=== PATIENT | female | born 1995 | race Caucasian/White ===

== ENCOUNTER 2016-10-15 20:17 | Emergency (ER) | payer OTHER ==
--- NOTE | 2016-10-15 21:44 | ED ORDER SUMMARY ---
..... Patient: HARSHAL CHARLES OrderSheet [facility] VisitID: [id number] [place] [address] 21y, F Registration Date/Time: 10/15/2016 ORDER SHEET Weight: 61.2 kg (stated) Allergies: None GENERAL ORDERS: CBC w Diff Urgent (20:34 10/15/2016 HBivens A.R.N.P.) (Ack 20:38 AMcQuoid ER Tech1) (Collected 20:47 RMarsden R.N.) (21:11 RMarsden R.N.) CMP Urgent (20:34 10/15/2016 HBivens A.R.N.P.) (Ack 20:38 AMcQuoid ER Tech1) (Collected 20:47 RMarsden R.N.) (21:11 RMarsden R.N.) UA-Culture if indicated Urgent (20:34 10/15/2016 HBivens A.R.N.P.) (Ack 20:38 AMcQuoid ER Tech1) (20:39 ALawrence ER Tech1) Amylase Urgent (20:34 10/15/2016 HBivens A.R.N.P.) (Ack 20:38 AMcQuoid ER Tech1) (Collected 20:47 RMarsden R.N.) (21:11 RMarsden R.N.) Lipase Urgent (20:34 10/15/2016 HBivens A.R.N.P.) (Ack 20:38 AMcQuoid ER Tech1) (Collected 20:47 RMarsden R.N.) (21:11 RMarsden R.N.) Urine Urgent (20:34 10/15/2016 HBivens A.R.N.P.) (Ack 20:38 AMcQuoid ER Tech1) (20:39 ALawrence ER Tech1) Urine Drug Screen Urgent (20:34 10/15/2016 HBivens A.R.N.P.) (Ack 20:38 AMcQuoid ER Tech1) (20:39 ALawrence ER Tech1) MEDICATION ORDERS: IV FLUIDS: IV NS : initial bolus 1000 mL (1000 mL/hr), then none - (NOW) (20:34 10/15/2016 HBivens A.R.N.P.) (20:47 RMarsden R.N.) Zofran IV 4 mg (NOW) (20:34 10/15/2016 HBivens A.R.N.P.) (21:11 RMarsden R.N.) IV Saline Lock (20:34 10/15/2016 HBivens A.R.N.P.) (20:46 RMarsden R.N.) ORDER SHEET NOTES: [Electronically signed by Mesha CampoRJuanitaN.P. (22:38 10/15/2016)] [Electronically signed by Jackie Nieves R.N. (04:55 10/16/2016)] [Electronically locked/signed by Jackie Nieves R.N. (04:55 10/16/2016)]
--- NOTE | 2016-10-15 21:44 | ED ORDER SUMMARY ---
..... Patient: HARSHAL CHARLES OrderSheet [facility] VisitID: [id number] [place] [address] 21y, F Registration Date/Time: 10/15/2016 ORDER SHEET Weight: 61.2 kg (stated) Allergies: None GENERAL ORDERS: CBC w Diff Urgent (20:34 10/15/2016 HBivens A.R.N.P.) (Ack 20:38 AMcQuoid ER Tech1) (Collected 20:47 RMarsden R.N.) (21:11 RMarsden R.N.) CMP Urgent (20:34 10/15/2016 HBivens A.R.N.P.) (Ack 20:38 AMcQuoid ER Tech1) (Collected 20:47 RMarsden R.N.) (21:11 RMarsden R.N.) UA-Culture if indicated Urgent (20:34 10/15/2016 HBivens A.R.N.P.) (Ack 20:38 AMcQuoid ER Tech1) (20:39 ALawrence ER Tech1) Amylase Urgent (20:34 10/15/2016 HBivens A.R.N.P.) (Ack 20:38 AMcQuoid ER Tech1) (Collected 20:47 RMarsden R.N.) (21:11 RMarsden R.N.) Lipase Urgent (20:34 10/15/2016 HBivens A.R.N.P.) (Ack 20:38 AMcQuoid ER Tech1) (Collected 20:47 RMarsden R.N.) (21:11 RMarsden R.N.) Urine Urgent (20:34 10/15/2016 HBivens A.R.N.P.) (Ack 20:38 AMcQuoid ER Tech1) (20:39 ALawrence ER Tech1) Urine Drug Screen Urgent (20:34 10/15/2016 HBivens A.R.N.P.) (Ack 20:38 AMcQuoid ER Tech1) (20:39 ALawrence ER Tech1) MEDICATION ORDERS: IV FLUIDS: IV NS : initial bolus 1000 mL (1000 mL/hr), then none - (NOW) (20:34 10/15/2016 HBivens A.R.N.P.) (20:47 RMarsden R.N.) Zofran IV 4 mg (NOW) (20:34 10/15/2016 HBivens A.R.N.P.) (21:11 RMarsden R.N.) IV Saline Lock (20:34 10/15/2016 HBivens A.R.N.P.) (20:46 RMarsden R.N.) ORDER SHEET NOTES: [Electronically signed by Mesha CampoRJuanitaN.P. (22:38 10/15/2016)] [Electronically signed by Jackie Nieves R.N. (04:55 10/16/2016)] [Electronically locked/signed by Jackie Nieves R.N. (04:55 10/16/2016)]
--- NOTE | 2016-10-15 21:44 | ED NURSING NOTES ---
Clinical Report - Nurses [facility] [address] [place] [address] 10/15/2016 20:19 Patient: HARSHAL CHARLES TRIAGE Triage time 20:22. Acuity: LEVEL 3. Chief Complaint: NAUSEA and VOMITING. 20:34 10/15/16. Alert. No acute distress. SEPSIS SCREEN: Sepsis Screen. Negative (no infection suspected/documented). HUBERT COMA SCORE: Hubert Coma Scale: 15- eyes open spontaneously (4); best verbal response- oriented x 4 (5); best motor response- obeys commands (6). --20:35 Jackie Nieves R.N. 20:25 10/15/16. BP: 118/76 taken on the left arm, while sitting. HR: 108. RR: 15. O2 saturation: 100%. Temp: 99 F. Pain level now: 0/10. --20:35 Jackie Nieves R.N. Weight: 61.2 kg stated. Height/Length: 67 inches Per Patient. BMI: 21.2. --20:30 Jackie Nieves R.N. Medications None. --20:28 Jackie Nieves R.N. Allergies None. --20:28 Jackie Nieves R.N. History Arrived by private vehicle. Historian: patient. Accompanied by family. Primary physician ([facility]). This started last night. ( Patient states she had four drinks last night and has been vomiting "every half hour since about 2am."). She has had abdominal pain. Last oral intake by patient was 2 hours ago (saltine crackers). Treatment UNION LABORER: None. PAST MEDICAL HX: Immunizations: up-to-date. Last normal menstrual period was 2 weeks ago. Denies current . SOCIAL HX: Never smoker. Occasional alcohol use. No drug use. FALL RISK ASSESSMENT: Fall risk assessment completed. No fall risk identified. NUTRITIONAL RISK ASSESSMENT: The nutritional risk assessment revealed no deficiencies. FUNCTIONAL ASSESSMENT: Functional assessment: no impairments noted. LEARNING NEEDS ASSESSMENT: The learning needs assessment revealed no barriers. SKIN INTEGRITY ASSESSMENT: Skin integrity risk assessment completed. No skin integrity risk identified. --20:35 Jackie Nieves R.N. PROBLEMS: no known problems. ADDITIONAL SURGERIES: no known surgeries. Interventions ID band on patient. To treatment room. --20:35 Jackie Nieves R.N. NURSING PROGRESS NOTES 20:36 10/15/2016 Site #1 started via IV in the right antecubital space with an 20g angiocath; one attempt. Blood drawn: rainbow set. Labeled in the presence of the patient and sent to the lab. Saline lock flushed with 5 mL saline. --20:46 Jackie Nieves R.N. 20:42 10/15/2016 Started bag #1 1000 mL IV Fluids IV NS (Saline); bolus of 1000 mL wide open via site #1. Allergies verified and confirmed 5 rights. IV patency established. IV site checked: no pain, redness, or swelling. IV flushed thoroughly pre- and post-medication administration. Completed per protocol. --20:47 Jackie Nieves R.N. 20:47 10/15/2016 Zofran (Ondansetron HCl) IVP 4 mg given over 2 minute(s) via site #1. Allergies verified and confirmed 5 rights. IV patency established. IV site checked: no pain, redness, or swelling. IV flushed thoroughly pre- and post-medication administration. IVP given by RN. --21:11 Jackie Nieves R.N. DISPOSITION / DISCHARGE 22:07 10/15/2016 Site #1 removed upon discharge. Bandaid applied. --22:12 Sathya Khan REsha No learning barriers present. Discharge instructions provided and reviewed with the patient. Reviewed medication(s) side effects, precautions, dosing and course information. Prescription(s) given to the patient. Patient verbalized understanding. Written instructions provided in Lao. The patient was discharged by the nurse practitioner. She was discharged home and accompanied by parent. She left the Emergency Department ambulatory and via private vehicle. Parent driving. ( pt dc only by this RN, pt given rx and f/u , ambulatory to lobby with steady gait). --22:13 Sathya Khan R.N. 22:11 10/15/16. BP: 105/58. HR: 94. RR: 17. O2 saturation: 99%. Temp: deferred. Pain level now: 0/10. --22:13 Page-Sathya Hernandez R.N. Locked/Released at 10/16/2016 4:55 by Jackie Nieves R.N.
--- NOTE | 2016-10-15 21:44 | ED NURSING NOTES ---
Clinical Report - Nurses [facility] [address] [place] [address] 10/15/2016 20:19 Patient: HARSHAL CHARLES TRIAGE Triage time 20:22. Acuity: LEVEL 3. Chief Complaint: NAUSEA and VOMITING. 20:34 10/15/16. Alert. No acute distress. SEPSIS SCREEN: Sepsis Screen. Negative (no infection suspected/documented). HUBERT COMA SCORE: Hubert Coma Scale: 15- eyes open spontaneously (4); best verbal response- oriented x 4 (5); best motor response- obeys commands (6). --20:35 Jackie Nieves R.N. 20:25 10/15/16. BP: 118/76 taken on the left arm, while sitting. HR: 108. RR: 15. O2 saturation: 100%. Temp: 99 F. Pain level now: 0/10. --20:35 Jackie Nieves R.N. Weight: 61.2 kg stated. Height/Length: 67 inches Per Patient. BMI: 21.2. --20:30 Jackie Nieves R.N. Medications None. --20:28 Jackie Nieves R.N. Allergies None. --20:28 Jackie Nieves R.N. History Arrived by private vehicle. Historian: patient. Accompanied by family. Primary physician ([facility]). This started last night. ( Patient states she had four drinks last night and has been vomiting "every half hour since about 2am."). She has had abdominal pain. Last oral intake by patient was 2 hours ago (saltine crackers). Treatment FOOD ASSEMBLER KITCHEN: None. PAST MEDICAL HX: Immunizations: up-to-date. Last normal menstrual period was 2 weeks ago. Denies current . SOCIAL HX: Never smoker. Occasional alcohol use. No drug use. FALL RISK ASSESSMENT: Fall risk assessment completed. No fall risk identified. NUTRITIONAL RISK ASSESSMENT: The nutritional risk assessment revealed no deficiencies. FUNCTIONAL ASSESSMENT: Functional assessment: no impairments noted. LEARNING NEEDS ASSESSMENT: The learning needs assessment revealed no barriers. SKIN INTEGRITY ASSESSMENT: Skin integrity risk assessment completed. No skin integrity risk identified. --20:35 Jackie Nieves R.N. PROBLEMS: no known problems. ADDITIONAL SURGERIES: no known surgeries. Interventions ID band on patient. To treatment room. --20:35 Jackie Nieves R.N. NURSING PROGRESS NOTES 20:36 10/15/2016 Site #1 started via IV in the right antecubital space with an 20g angiocath; one attempt. Blood drawn: rainbow set. Labeled in the presence of the patient and sent to the lab. Saline lock flushed with 5 mL saline. --20:46 Jackie Nieves R.N. 20:42 10/15/2016 Started bag #1 1000 mL IV Fluids IV NS (Saline); bolus of 1000 mL wide open via site #1. Allergies verified and confirmed 5 rights. IV patency established. IV site checked: no pain, redness, or swelling. IV flushed thoroughly pre- and post-medication administration. Completed per protocol. --20:47 Jackie Nieves R.N. 20:47 10/15/2016 Zofran (Ondansetron HCl) IVP 4 mg given over 2 minute(s) via site #1. Allergies verified and confirmed 5 rights. IV patency established. IV site checked: no pain, redness, or swelling. IV flushed thoroughly pre- and post-medication administration. IVP given by RN. --21:11 Jackie Nieves R.N. DISPOSITION / DISCHARGE 22:07 10/15/2016 Site #1 removed upon discharge. Bandaid applied. --22:12 Sathya Khan REsha No learning barriers present. Discharge instructions provided and reviewed with the patient. Reviewed medication(s) side effects, precautions, dosing and course information. Prescription(s) given to the patient. Patient verbalized understanding. Written instructions provided in Belarusian. The patient was discharged by the nurse practitioner. She was discharged home and accompanied by parent. She left the Emergency Department ambulatory and via private vehicle. Parent driving. ( pt dc only by this RN, pt given rx and f/u , ambulatory to lobby with steady gait). --22:13 Sathya Khan R.N. 22:11 10/15/16. BP: 105/58. HR: 94. RR: 17. O2 saturation: 99%. Temp: deferred. Pain level now: 0/10. --22:13 Page-Sathya Hernandez R.N. Locked/Released at 10/16/2016 4:55 by Jackie Nieves R.N.
--- NOTE | 2016-10-15 21:44 | ED CLINICAL REPORT ---
Clinical Report - Physicians/Mid Levels [facility] [address] [place] [address] 10/15/2016 20:19 Patient: HARSHAL CHARLES Time Seen: 20:23; initial patient contact, initial documentation, patient care assumed. Arrived- By private vehicle. Historian- patient and mother. HISTORY OF PRESENT ILLNESS Chief Complaint: VOMITING. This started today and is still present. It was abrupt in onset and has been constant. No recent travel. She has had nausea and vomiting. No diarrhea, black stools, bloody stools, constipation or flank pain. No history of possible bad food exposure, known contact with a sick individual or change in routine. She has had mild abdominal pain (feels sore). Has not recently been camping or on antibiotics. The illness is described as severe. (partied last night for graduation, had x4 drinks, but alcohol doesn't do her well, feel hungover). Similar symptoms previously: Milder. Recent medical care: Not recently seen/assessed. REVIEW OF SYSTEMS No fever, difficulty with urination, dark urine, chest pain or difficulty breathing. Denies current . All systems otherwise negative, except as recorded above. PAST HISTORY Negative. SOCIAL HISTORY Never smoker. Occasional alcohol use. No drug use. No recent travel. Is a local resident. FAMILY HISTORY Negative. ADDITIONAL NOTES The nursing notes have been reviewed with agreement regarding the chief complaint, HPI, ROS, PMH and patient medications and allergies. PHYSICAL EXAM Vital Signs: 10/15/2016 20:25 BP: 118/76. HR: 108. RR: 15. O2 saturation: 100%. Temp: 99 F. Pain level now: 0/10. Have been reviewed as abnormal and appear to be correct. Blood pressure normal. Tachycardic. Respiratory rate normal. Temperature normal. Oxygen saturation normal. Appearance: Alert. Oriented X3. No acute distress. Eyes: Pupils equal, round and reactive to light. Eyes normal inspection. ENT: Nose normal. Pharynx normal. Neck: Normal inspection. Neck supple. CVS: Heart rate / rhythm abnormal. Tachycardia (ventricular rate = 120). Heart sounds normal. Pulses normal. Respiratory: No respiratory distress. Breath sounds normal. Abdomen: Soft and nontender. Bowel sounds normal. No organomegaly. No mass. Back: Normal inspection. Skin: Skin warm and dry. Normal skin color. No rash. Normal skin turgor. Extremities: Extremities exhibit normal ROM. No lower extremity edema. Neuro: Oriented X 3. No motor deficit. No sensory deficit. LABS, X-RAYS, AND EKG Laboratory Tests: UA-Culture if indicated: (FANY: 10/15/2016 20:31) ( [facility] 10/15/2016 21:12) Final results Test Result Flag Units (Reference) URINE COLOR YELLOW URINE APPEARANCE CLEAR URINE GLUCOSE NEGATIVE (NEGATIVE) URINE BILIRUBIN NEGATIVE (NEGATIVE) URINE KETONE 2+ (NEGATIVE) URINE SPECIFIC GRAVITY 1.025 (1.010-1.030) URINE PH 7.0 (5.0-8.0) URINE PROTEIN 1+ (NEGATIVE) URINE UROBILINOGEN 0.2 EU/dL (0.2-1.0) URINE NITRITE NEGATIVE (NEGATIVE) URINE BLOOD TRACE-INTACT (NEGATIVE) URINE LEUK ESTERASE NEGATIVE (NEGATIVE) URINE RBC RARE rbc/hpf (0-1) URINE WBC 1-3 wbc/hpf (0-1) URINE EPITHELIAL CELLS 1-3 EPI/hpf (0-5) URINE BACTERIA MODERATE (2+ TO 3+) (NONE SEEN) URINE COMMENT CULTURE INDICATED 1+ MUCUSURINE CULTURES ARE SET-UP BASED ON THE FOLLOWING CRITERIA:POSITIVE NITRITEPOSITIVE LEUKOCYTE ESTERASEGREATER THAN 10 WHITE BLOOD CELLSMODERATE (2+) OR GREATER BACTERIA Urine: (FANY: 10/15/2016 20:31) ( [facility] 10/15/2016 20:51) Final results Test Result Flag Units (Reference) URINE NEGATIVE CBC w Diff: (FANY: 10/15/2016 20:42) ( [facility] 10/15/2016 20:56) Final results Test Result Flag Units (Reference) WHITE BLOOD COUNT 10.1 K/uL (4.5-11.5) RED BLOOD COUNT 4.69 M/uL (4.00-5.20) HEMOGLOBIN 13.1 gm/dL (12.0-16.0) HEMATOCRIT 40.2 % (36.0-46.0) MEAN CELL VOLUME 86 fL (80-100) MEAN CORPUSCULAR HGB 28 pg (26-34) MEAN CORPUSCULAR HGB CONC 33 g/dL (31-37) RED CELL DISTRIBUTION WIDTH 13.7 % (11.6-14.8) PLATELET COUNT 227 K/uL (150-400) LYMPH % 8.5 L % (25-40) MONO % 2.4 L % (3-14) GRANULOCYTE % 89.1 (53-90) Urine Drug Screen: (FANY: 10/15/2016 20:31) ( MsgRcvd 10/15/2016 21:23) Final results Test Result Flag Units (Reference) AMPHETAMINE/METHAMPHETAMINE NEGATIVE (NEGATIVE) BARBITURATE NEGATIVE (NEGATIVE) BENZODIAZEPINE NEGATIVE (NEGATIVE) CANNABINOID NEGATIVE (NEGATIVE) COCAINE NEGATIVE (NEGATIVE) ECSTASY NEGATIVE (NEGATIVE) METHADONE NEGATIVE (NEGATIVE) OPIATE NEGATIVE (NEGATIVE) The urine drug screen is a qualitative screening test fordrug overdose and abuse. All screen results should beconsidered as presumptive.Drugs screened for are as follows:BenzodiazepinesCocaineAmphetamines/MetamphetaminesTHC (Tetrahydrocannabinol)OpiatesBarbituratesEcstasyMethadonePositive results are unconfirmed. For confirmation, notifythe lab for the specimen to be sent to the reference lab.All confirmations must be performed by a differentmethodology.The ingestion of natural herbal and plant productscontaining Ephedra/Ephedra metabolites can produce in urineone or more substances capable of cross reacting withamphetamine/methamphetamine immunoassays. These testsprovide a preliminary result only. A more specificalternative chemical method must be used to obtain aconfirmed analytical result. CMP: (FANY: 10/15/2016 20:42) ( MsgRcvd 10/15/2016 21:21) Final results Test Result Flag Units (Reference) GLUCOSE 109 mg/dL (70-110) BUN 13 mg/dL (7-18) CREATININE 0.8 mg/dL (0.6-1.3) Estimated GFR >60 mL/min Estimated GFR- >60 mL/min Note: Persistent reduction over 3 months in eGFR<60 mL/min/1.73 m2 defines CKD. Patients with eGFR values>=60 mL/min/1.73 m2 may also have CKD if evidence ofpersistent proteinuria. Additional information may be foundat www.kidney.org. SODIUM 138 mmol/L (136-145) POTASSIUM 3.6 mmol/L (3.5-5.1) CHLORIDE 107 mmol/L (98-107) CARBON DIOXIDE 31 mmol/L (21-32) CALCIUM 9.6 mg/dL (8.5-10.1) TOTAL PROTEIN 8.4 H g/dL (6.4-8.2) ALBUMIN 4.5 g/dL (3.3-5.0) BILIRUBIN, TOTAL 0.7 mg/dL (0.0-1.0) ALKALINE PHOSPHATASE 49 U/L (46-116) AST (SGOT) 16 U/L (15-37) ALT (SGPT) 21 U/L (12-78) LIPASE 81 U/L (73-393) AMYLASE 55 U/L (25-115) . PROGRESS AND PROCEDURES Course of Care: 2135. pt stated she was feeling much better. Patient and mother counseled in person regarding the patient's stable condition, test results and diagnosis. 21:36. Differential Diagnosis: I considered gastritis, peptic ulcer disease, ischemia, gastroesophageal reflux disease, gastroparesis, Crohn's disease, ulcerative colitis, small bowel obstruction, gastric outlet obstruction, colonic obstruction, colon cancer, gastroenteritis, cholecystitis, pancreatitis, viral syndrome, enterocolitis, urinary tract infection, hepatitis, drugs and as a possible cause of vomiting in this patient. This is a partial list of diagnoses considered. Above considerations are based on history, physical exam, reassessment and laboratory data. Differential diagnosis was discussed with patient and patient's mother. Disposition: Discharged home in good and improved condition (21:44). Condition: good and stable. CLINICAL IMPRESSION Intractable vomiting with nausea. INSTRUCTIONS Take clear liquids only (frequent sips) for the next 12 hours until better. May continue medications with sips only. Advance diet as tolerated. Avoid. Warnings: GENERAL WARNINGS: Return or contact your physician immediately if your condition worsens or changes unexpectedly, if not improving as expected, or if other problems arise. SPECIFICALLY, return if you develop pain in the abdomen or pelvis, fever, the inability to keep fluids down, blood in vomitus, blood in diarrhea, fainting or lightheadedness. Prescription Medications: Zofran 4 mg: Take 1 orally every six hours as needed for nausea/vomiting. Dispense ten (10). No refills. Substitution is permissible. Follow-up: Follow up with your doctor in about two days even if well. Call for an appointment. Summary of care provided to patient. Understanding of the discharge instructions verbalized by patient. (Electronically signed by Mesha Campo A.R.N.P. 10/15/2016 22:38)
--- NOTE | 2016-10-16 04:56 | ED MAR SUMMARY ---
..... Medication Administration Record [facility] [address] [place] [address] Patient: HARSHAL CHARLES Visit ID: [id number] 21y, F Weight: 61.2 kg Height/Length: 67 in BMI: 21.2 ALLERGIES: None Start 20:42 10/15/2016 Jackie Nieves R.N. Medication Administered: IV NS (SALINE), Dose: IV Fluids, Bolus: 1000 mL wide open, Dispensed: 1000 mL bag, Site: #1 right AC. Medication Ordered: IV NS : initial bolus 1000 mL (1000 mL/hr), then none - (NOW). Given 20:47 10/15/2016 Jackie Nieves R.N. Medication Administered: ZOFRAN [IVP] (ONDANSETRON HCL), Dose: 4 mg IVP over 2 minute(s), Site: #1 right AC. Medication Ordered: Zofran IV 4 mg (NOW).
--- NOTE | 2016-10-16 04:56 | ED DISCHARGE INSTRUCTIONS ---
Patient: HARSHAL CHARLES General Instructions [facility] VisitID: [id number] [place] [address] 21y, F Registration Date/Time: 10/15/2016 Intractable vomiting with nausea. INSTRUCTIONS Take clear liquids only (frequent sips) for the next 12 hours until better. May continue medications with sips only. Advance diet as tolerated. Avoid. Warnings: GENERAL WARNINGS: Return or contact your physician immediately if your condition worsens or changes unexpectedly, if not improving as expected, or if other problems arise. SPECIFICALLY, return if you develop pain in the abdomen or pelvis, fever, the inability to keep fluids down, blood in vomitus, blood in diarrhea, fainting or lightheadedness. Prescription Medications: Zofran 4 mg: Take 1 orally every six hours as needed for nausea/vomiting. Dispense ten (10). No refills. Substitution is permissible. Follow-up: Follow up with your doctor in about two days even if well. Call for an appointment. Summary of care provided to patient. Understanding of the discharge instructions verbalized by patient. ADDITIONAL INFORMATION Vomiting [6Yr-Adult] Vomiting is a common symptom that may be due to different causes. These include gastroenteritis ("stomach flu"), food poisoning and gastritis. There are other more serious causes of vomiting which may be hard to diagnose early in the illness. Therefore, it is important to watch for the warning signs listed below. The main danger from repeated vomiting is dehydration. This is due to excess loss of water and minerals from the body. When this occurs, body fluids must be replaced. Home Care: If symptoms are severe, rest at home for the next 24 hours. You may use acetaminophen (Tylenol) or ibuprofen (Motrin, Advil) to control fever, unless another medicine was prescribed. [NOTE : If you have chronic liver or kidney disease or ever had a stomach ulcer or GI bleeding, talk with your doctor before using these medicines.] (Aspirin should never be used in anyone under 18 years of age who is ill with a fever. It may cause severe liver damage.) Avoid tobacco and alcohol use, which may worsen your symptoms. If medicines for vomiting were prescribed, take as directed. Once vomiting stops, then follow these guidelines: During The First 12-24 Hours follow the diet below: FRUIT JUICES: Apple, grape juice, clear fruit drinks, and electrolyte replacement drinks. BEVERAGES: Soft drinks without caffeine; mineral water (plain or flavored), decaffeinated tea and coffee. SOUPS: Clear broth, consomm and bouillon DESSERTS: Plain gelatin, popsicles and fruit juice bars. As you feel better, you may add 6-8 ounces of yogurt per day. During The Next 24 Hours you may add the following to the above: Hot cereal, plain toast, bread, rolls, crackers Plain noodles, rice, mashed potatoes, chicken noodle or rice soup Unsweetened canned fruit (avoid pineapple), bananas Limit caffeine and chocolate. No spices or seasonings except salt. During The Next 24 Hours Gradually resume a normal diet, as you feel better and your symptoms lessen. Follow Up with your doctor as advised if you are not improving over the next 2-3 days. Get Prompt Medical Attention if any of the following occur: Constant right-sided lower abdominal pain or increasing general abdominal pain Continued vomiting (unable to keep liquids down) for 24 hours Frequent diarrhea (more than 5 times a day); blood (red or black color) or mucus in diarrhea Reduced urine output or extreme thirst Weakness, dizziness or fainting Unusually drowsy or confused Fever of 100.4F (38C) oral or higher, not better with fever medication Yellow color of the eyes or skin Clear Liquid Diet Clear liquids are any liquid that you can see through as well as those that are very easy to digest. This is used while the body is recovering from irritation or infection of the stomach or intestinal tract. It may also be used before special procedures or surgery. This diet is to be used no more than three days. You may include the following items. Adults Adults should drink a total of 23 quarts of liquid per day. It may be easier to drink small frequent servings rather than a few large ones. Liquids can include: Fruit juices.Strained orange juice or lemonade (no pulp), apple, grape and cranberry juice, clear fruit drinks, sports drinks Beverages.Sport drinks, sodas, mineral water (plain or flavored), tea, black coffee, liquid gelatin (add twice the recommended amount of water) Soups.Clear broth, consomm, bouillon Desserts.Plain gelatin, popsicles, fruit juice bars Children Over 2 years old The following liquids are acceptable for children over age 2: Fruit juices.Strained orange juice or lemonade (no pulp), apple, grape and cranberry juice, clear fruit drinks Beverages. Sports drinks, sodas, mineral water (plain or flavored), tea, liquid gelatin (add twice the recommended amount of water) Soups. Clear broth, consomm, bouillon Desserts. Plain gelatin, popsicles, fruit juice bars Children under 2 years old Oral rehydration fluids such are available at drug stores and most grocery stores without a prescription. [facility] Diet A bland diet is used for patients with an upset stomach. It consists of foods that are mild and easy to digest. It is better to eat small frequent meals rather than three large meals a day. BEVERAGES OK: Fruit juices, non-caffeinated teas and coffee, non-carbonated walker AVOID: Carbonated beverage, caffeinated tea and coffee, all alcoholic beverages BREAD OK: Refined white, wheat or rye bread, humberto or soda crackers, Yvette toast, plain rolls, bagels AVOID: Whole-grain bread CEREAL OK: Refined cereals: cooked or ready to eat AVOID: Whole grain cereals and granola, or those containing bran, seeds or nuts DESSERTS OK: Peanut butter and all others except those to "avoid" AVOID: Chocolate, cocoa, coconut, popcorn, nuts, seeds, jam, marmalade FRUITS OK: Canned, cooked, frozen or fresh fruits without seeds or tough skin AVOID: Olives, skin and seeds of fruit MEATS OK: All fresh or preserved meat, fish and fowl AVOID: Any that are prepared with those spices to "avoid" CHEESE & EGGS OK: Eggs, cottage cheese, cream cheese, other cheeses AVOID: All cheeses made with those spices to "avoid" POTATOES & PASTA OK: Potato, rice, macaroni, noodles, spaghetti AVOID: None SOUPS OK: All soups without heavy seasoning AVOID: Soups made with those spices to "avoid" VEGETABLES OK: Canned, cooked, fresh or frozen mildly flavored vegetables without seeds, skins or coarse fiber AVOID: Vegetables prepared with those spices to "avoid"; skin and seeds of vegetables and those with coarse fiber SPICES OK: Salt, lemon and shoshone-bannock juice, vinegar, all extracts, ferdinand, cinnamon, thyme, mace, allspice, paprika AVOID: Indore powder, cloves, pepper, seed spices, garlic, gravy pickles, highly seasoned salad dressings Clear Liquid Diet Clear liquids are any liquid that you can see through as well as those that are very easy to digest. This is used while the body is recovering from irritation or infection of the stomach or intestinal tract. It may also be used before special procedures or surgery. This diet is to be used no more than three days. You may include the following items. Adults Adults should drink a total of 23 quarts of liquid per day. It may be easier to drink small frequent servings rather than a few large ones. Liquids can include: Fruit juices.Strained orange juice or lemonade (no pulp), apple, grape and cranberry juice, clear fruit drinks, sports drinks Beverages.Sport drinks, sodas, mineral water (plain or flavored), tea, black coffee, liquid gelatin (add twice the recommended amount of water) Soups.Clear broth, consomm, bouillon Desserts.Plain gelatin, popsicles, fruit juice bars Children Over 2 years old The following liquids are acceptable for children over age 2: Fruit juices.Strained orange juice or lemonade (no pulp), apple, grape and cranberry juice, clear fruit drinks Beverages. Sports drinks, sodas, mineral water (plain or flavored), tea, liquid gelatin (add twice the recommended amount of water) Soups. Clear broth, consomm, bouillon Desserts. Plain gelatin, popsicles, fruit juice bars Children under 2 years old Oral rehydration fluids such are available at drug stores and most grocery stores without a prescription. Ondansetron Oral disintegrating tablet What is this medicine? ONDANSETRON (on KEYUR se saige) is used to treat nausea and vomiting caused by chemotherapy. It is also used to prevent or treat nausea and vomiting after surgery. How should I use this medicine? These tablets are made to dissolve in the mouth. Do not try to push the tablet through the foil backing. With dry hands, peel away the foil backing and gently remove the tablet. Place the tablet in the mouth and allow it to dissolve, then swallow. While you may take these tablets with water, it is not necessary to do so. Talk to your funeral sales manager regarding the use of this medicine in children. Special care may be needed. What side effects may I notice from receiving this medicine? Side effects that you should report to your doctor or health college and career counselor as soon as possible: allergic reactions like skin rash, itching or hives, swelling of the face, lips, or tongue breathing problems dizziness fast or irregular heartbeat feeling faint or lightheaded, falls fever and chills swelling of the hands and feet tightness in the chest Side effects that usually do not require medical attention (report to your doctor or health college and career counselor if they continue or are bothersome): constipation or diarrhea headache What may interact with this medicine? Do not take this medicine with any of the following medications: -apomorphine -cisapride -dofetilide -dronedarone -pimozide -thioridazine -ziprasidone This medicine may also interact with the following medications: -carbamazepine -phenytoin -rifampicin -tramadol -other medicines that prolong the QT interval (cause an abnormal heart rhythm) What if I miss a dose? If you miss a dose, take it as soon as you can. If it is almost time for your next dose, take only that dose. Do not take double or extra doses. Where should I keep my medicine? Keep out of the reach of children. Store between 2 and 30 degrees C (36 and 86 degrees F). Throw away any unused medicine after the expiration date. What should I tell my health care provider before I take this medicine? They need to know if you have any of these conditions: heart disease history of irregular heartbeat liver disease low levels of magnesium or potassium in the blood an unusual or allergic reaction to ondansetron, granisetron, other medicines, foods, dyes, or preservatives or trying to get breast-feeding What should I watch for while using this medicine? Check with your doctor or health college and career counselor as soon as you can if you have any sign of an allergic reaction. You have been given the following additional information: Vomiting (6Y-Adult) Diet, Clear Liquid Diet, [facility] (Adult) Diet, Clear Liquid Ondansetron Oral disintegrating tablet (Electronically signed by Mesha Campo A.R.N.P. 10/15/2016 22:38)
--- NOTE | 2016-10-16 04:56 | ED MAR SUMMARY ---
..... Medication Administration Record [facility] [address] [place] [address] Patient: HARSHAL CHARLES Visit ID: [id number] 21y, F Weight: 61.2 kg Height/Length: 67 in BMI: 21.2 ALLERGIES: None Start 20:42 10/15/2016 Jackie Nieves R.N. Medication Administered: IV NS (SALINE), Dose: IV Fluids, Bolus: 1000 mL wide open, Dispensed: 1000 mL bag, Site: #1 right AC. Medication Ordered: IV NS : initial bolus 1000 mL (1000 mL/hr), then none - (NOW). Given 20:47 10/15/2016 Jackie Nieves R.N. Medication Administered: ZOFRAN [IVP] (ONDANSETRON HCL), Dose: 4 mg IVP over 2 minute(s), Site: #1 right AC. Medication Ordered: Zofran IV 4 mg (NOW).
--- NOTE | 2016-10-16 04:56 | ED MED RECONCILIATION SUMMARY ---
Patient: HARSHAL CHARLES Medication Reconciliation Report [facility] VisitID: [id number] [place] [address] 21y, F Registration Date/Time: 10/15/2016 Weight: 61.2 kg Height/Length: 67 in. BMI: 21.2 ALLERGIES: None The patient's Home Medications are listed below: NONE. The source(s) of the original Home Medication information: Not obtained. The following Medications were given to the patient in the Emergency Department: IV NS IV Fluids bolus 1000 mL wide open, administered: 10/15/2016 8:42:00 PM Zofran [IVP] IVP 4 mg, administered: 10/15/2016 8:47:00 PM The following Medications were prescribed to the patient: Zofran 4 mg: Take 1 orally every six hours as needed for nausea/vomiting. Dispense ten (10). No refills. Substitution is permissible. -- Mesha Campo A.R.N.P.
--- NOTE | 2016-10-16 04:56 | ED MED RECONCILIATION SUMMARY ---
Patient: HARSHAL CHARLES Medication Reconciliation Report VisitID: [id number] [place] [address] 21y, F Registration Date/Time: 10/15/2016 Weight: 61.2 kg Height/Length: 67 in. BMI: 21.2 ALLERGIES: None The patient's Home Medications are listed below: NONE. The source(s) of the original Home Medication information: Not obtained. The following Medications were given to the patient in the Emergency Department: IV NS IV Fluids bolus 1000 mL wide open, administered: 10/15/2016 8:42:00 PM Zofran [IVP] IVP 4 mg, administered: 10/15/2016 8:47:00 PM The following Medications were prescribed to the patient: Zofran 4 mg: Take 1 orally every six hours as needed for nausea/vomiting. Dispense ten (10). No refills. Substitution is permissible. -- Mesha Campo A.R.N.P.
== END 2016-10-15 22:13 | disposition home or self-care (01) ==
LOC: ED SRH 20:17
DX: R11.2 Nausea with vomiting, unspecified (principal)
CPT/HCPCS: 90004; 90100; 90469; 92235; 92530; 92760; 92761; 92762; 92763; 92764; 92765; 92766; 92767; 93070; 95059